=== PATIENT | female | born 1965 | race Caucasian/White ===

== ENCOUNTER 2020-02-21 10:35 | Outpatient (CLI) | payer BC ==
--- NOTE | 2020-02-21 12:40 | XRAY Report ---
PROCEDURE: Spine Scoliosis Study 4-5V INDICATIONS: LUMBAR FUSION TECHNIQUE: Frontal and lateral standing views of the spine acquired. COMPARISON: None. FINDINGS: There are Gaston rods present from the midthoracic spine through the S1 vertebral body. These rojelio ear intact. Multiple transpedicular vertebral body screws at most levels are also intact. There is a separate lumbar fusion hardware set and osseous fusion from L3 through S1 with intact appearing hardw are. There are disc spacers at L3-4, L4-5, and L5-S1. Bilateral sacroiliac joints fixation screws are seen. They appear intact to the extent they're visualized. Bones are diffusely demineralized. There is a mild levoconvex curvature of the thoracolumbar spine wi th the apex approximately at L2. There is mild dextroconvex lower thoracic curvature, and the mid tho racic levoconvex curvature with the apex at T4-5. There is limited range of motion with preserved alignment in flexion and extension. No visible fractu res given lumbar demineralization. IMPRESSION: 1. There is a double S-shaped scoliotic curvature through the thoracic and lumbar spine. 2. There are Gasotn rods as well as lumbar fusion hardware in the thoracolumbar spine all of whic h appear intact. 3. No subluxation during flexion or extension. Reviewed by: Griselda Hilario MD on 02/21/2020 12:39 PM PST Approved by: Griselda Hilario MD on 02/21/2020 12:39 PM PST Station ID: [id number]
== END 2020-02-21 10:36 | disposition home or self-care (01) ==
LOC: DI 10:35
DX: M41.85 Other forms of scoliosis, thoracolumbar region (principal); Z98.1 Arthrodesis status
CPT/HCPCS: 72083

== ENCOUNTER 2023-04-03 10:51 | Emergency (ER) | payer BC ==
[2023-04-03 11:31] VITALS: O2SAT 100
--- NOTE | 2023-04-03 11:47 | XRAY Report ---
PROCEDURE: Wrist 4 View LT INDICATIONS: Trauma TECHNIQUE: 4 views of the wrist were acquired. COMPARISON: None. FINDINGS: Bones: Minimally displaced and impacted distal radius intra-articular fracture. Suspected miniscule avulsion fragment from the ulnar styloid as well. Soft tissues: There is soft tissue swelling. IMPRESSION: Minimally displaced and impacted distal radius fracture. Possible miniscule avulsion fragment from th e ulnar styloid. Reviewed by: Beni Simpson MD on 04/03/2023 11:45 AM PST Approved by: Beni Simpson MD on 04/03/2023 11:45 AM PST Station ID: [id number]
--- NOTE | 2023-04-03 12:43 | ED Physician Documentation ---
PD HPI UPPER EXT INJURY - Stated complaint Stated Complaint: L WRIST PX, FALL - Chief complaint Chief Complaint: Trauma Ext - History obtained from History obtained from: Patient - Additonal information Additional information: Had a fall off the counter last night onto a left wrist. That is her nondominant side. Persistent modest pain there. No other injuries. PD PAST MEDICAL HISTORY - Past Medical History Past Medical History: No Cardiovascular: None Respiratory: None Neuro: None Endocrine/Autoimmune: None GI: None STONE TRIMMER: None : None HEENT: None Psych: None Musculoskeletal: Scoliosis Derm: None - Past Surgical History Past Surgical History: Yes Ortho: Spine surgery - Present Medications Home Medications: Ambulatory Orders Medication Instructions Recorded Confirmed No Known Home Medications 04/03/23 04/03/23 - Allergies Allergies/Adverse Reactions: Allergies Allergy/AdvReac Type Severity Reaction Status Date / Time No Known Drug Allergies Allergy Verified 04/03/23 11:18 - Social History Does the pt smoke?: No Smoking Status: Never smoker Does the pt drink ETOH?: Yes Does the pt have substance abuse?: No - Immunizations Immunizations are current?: Yes PD ED PE NORMAL - Vitals Vital signs reviewed: Yes - General General: Alert and oriented X 3, No acute distress - Neck Neck: No bony TTP - Extremities Extremities: Other (TTP distal L wrist with swelling, NVI L hand) - Neuro Neuro: Alert and oriented X 3, Normal speech Results - Vitals Vitals: Vital Signs - 24 hr 04/03/23 11:18 Temperature 36.6 C Heart Rate 74 Respiratory 18 Rate Blood Pressure 144/94 H O2 Saturation 100 - Rads (name of study) L wrist XR Relevant Findings:: Final report received, [facility] independent interpretation of test Procedures - Splint (location) - Minor L wrist Splint applied by: Physician Type of splint: Fiberglass, Short arm, Volar cock up Other: Patient tolerated well, No complications, Neurovascular intact Departure - Departure Disposition: 01 Home, Self Care Clinical Impression: Left wrist fracture Qualifiers: Encounter type: initial encounter Fracture type: closed Qualified Code(s): S62.102A - Fracture of unspecified carpal bone, left wrist, initial encounter for closed fracture Condition: Good Record reviewed to determine appropriate education?: Yes Instructions: ED Fx Colles Wrist No Redu Requ Follow-Up: Orthopedic Care [Provider Group] Comments: Follow-up with your orthopedist within a week or so, call Tuesday for an appointment. Return for new or worsening symptoms. You can continue the Tylenol and/or ibuprofen for pain. Pending follow-up keep the splint on, do not get it wet.
[2023-04-03 13:00] VITALS: BP 132/82
== END 2023-04-03 12:52 | disposition home or self-care (01) ==
LOC: ED 10:51
DX: S52.502A Unspecified fracture of the lower end of left radius, initial encounter for closed fracture (principal); W17.89XA Other fall from one level to another, initial encounter
CPT/HCPCS: 29125; 99282; 99283